=== PATIENT | male | born 1935 | race African-American/Black ===

== ENCOUNTER 2022-05-17 14:21 | Observation (INO) ==
[2022-05-17 16:26] LABS: Basophils % 0.3 % (0.0-0.8); Eosinophils # 0.1 10*3/uL (0.0-0.87); Eosinophils % 0.8 % (0.00-10.9); Hemoglobin 12.9 GM/DL (14.0-18.0); Immature Granulocytes % 0.3 %; Immature Granulocytes Absolute 0.02 #; Lymphocytes # 0.7 10*3/uL (1.4-4.0); Mean Corpuscular HGB Conc 34.9 GM/DL (32-36); Mean Corpuscular Volume 99.5 FL (87-102); Mean Platelet Volume 8.6 FL (9.6-12.0); Monocytes # 0.5 10*3/uL (0.11-0.8); Monocytes % 8.2 % (1.7-12.7); Neutrophils % 78.4 % (38.7-73.9); Platelet Count 189 T/CUMM (130-400); Red Blood Count 3.72 MC/CUMM (3.8-5.5)
[2022-05-17] MEDS ORDERED: ONDANSETRON 4 MG/2 ML VIAL IV STA (16:35)
[2022-05-17 16:42] LABS: Albumin 4.2 G/DL (3.4-5.0); Calcium 9.2 MG/DL (8.5-10.1); Osmolality,Calculated 254.4 MOS/KG (273-304)
[2022-05-17 17:23] LABS: Bilirubin,Urine Negative (Negative); Blood, Urine Trace mg/dL (Negative); Glucose,Urine (UA) Negative (Negative); Ketones,Urine Negative (Negative); Nitrite,Urine Negative (Negative); Protein,Urine 30 mg/dL (Negative); Urine Appearance Clear (Clear); Urine Color Yellow (Yellow); Urine Specific Gravity 1.015 (1.001-1.035); Urine Urobilinogen 0.2 eU/dL (<2.0)
[2022-05-17] MEDS ORDERED: SODIUM CHLORIDE 0.9% 1,000 ML IV STA (17:23)
[2022-05-17 17:25] LABS: Mucus,Urine Occasional /LPF (Occasional); RBC,Urine 6 /HPF (0-4); Squamous Epithelial Cell,Urine Occasional /HPF (0-10)
[2022-05-17] MEDS ORDERED: cefTRIAXone 1,000 MG in SODIUM CHLORIDE 0.9% 100 ML IV STA (18:07)
[2022-05-17] MEDS ORDERED: cefTRIAXone 250 MG VIAL IM STA (18:51)
[2022-05-17] MEDS ORDERED: FLUTICASONE 50 MCG NASAL SPRAY 16 GM BOTTLE BOTH NARES PRN (18:57)
[2022-05-17] MEDS: SODIUM CHLORIDE 0.9% 1,000 ML IV SCH (20:27)
[2022-05-17] MEDS: CALCIUM (CARBONATE)/VITAMIN D 600 MG-400 UNIT TABLET PO SCH (20:29)
[2022-05-17] MEDS: PANTOPRAZOLE 20 MG TABLET PO SCH (20:29)
[2022-05-17] MEDS: TAMSULOSIN 0.4 MG CAPSULE PO SCH (20:29)
[2022-05-17] MEDS: METOPROLOL TARTRATE 25 MG TABLET PO SCH (20:29)
[2022-05-17] MEDS ORDERED: LIDOCAINE 1% 20 ML VIAL IM ONE (20:30)
[2022-05-17] MEDS ORDERED: cefTRIAXone 1,000 MG VIAL IM ONE (20:30)
[2022-05-18 06:12] LABS: Basophils % 0.5 % (0.0-0.8); Eosinophils # 0.2 10*3/uL (0.0-0.87); Eosinophils % 4.2 % (0.00-10.9); Hematocrit 32.7 VOL% (42.0-52.0); Hemoglobin 11.5 GM/DL (14.0-18.0); Immature Granulocytes % 0.5 %; Immature Granulocytes Absolute 0.02 #; Lymphocytes # 0.8 10*3/uL (1.4-4.0); Lymphocytes % 19.2 % (21.2-54.2); Mean Corpuscular HGB Conc 35.2 GM/DL (32-36); Mean Corpuscular Volume 101.2 FL (87-102); Monocytes # 0.4 10*3/uL (0.11-0.8); Monocytes % 10.9 % (1.7-12.7); Neutrophils % 64.7 % (38.7-73.9); Platelet Count 172 T/CUMM (130-400); Red Blood Count 3.23 MC/CUMM (3.8-5.5); Red Cell Distribution Width 11.2 % (9.3-17.3)
[2022-05-18 06:35] LABS: Calcium 8.8 MG/DL (8.5-10.1); Potassium 4.2 MMOL/L (3.5-5.1)
[2022-05-18] MEDS ORDERED: ACETAMINOPHEN 500 MG TABLET PO PRN (08:41)
[2022-05-18] MEDS ORDERED: BUTALBITAL/ACETAMIN/CAFFEINE 50-325-40 MG TABLET PO ONE (08:42)
[2022-05-18] MEDS: LOSARTAN 50 MG TABLET PO SCH (09:27)
[2022-05-18] MEDS: FOLIC ACID 1 MG TABLET PO SCH (09:27)
[2022-05-18] MEDS: METOPROLOL TARTRATE 25 MG TABLET PO SCH ×2 (09:27→20:30)
[2022-05-18] MEDS: CALCIUM (CARBONATE)/VITAMIN D 600 MG-400 UNIT TABLET PO SCH ×2 (09:27→20:30)
[2022-05-18] MEDS: ASPIRIN EC 81 MG TABLET PO SCH (09:27)
[2022-05-18] MEDS: PANTOPRAZOLE 20 MG TABLET PO SCH ×2 (09:27→20:30)
[2022-05-18] MEDS: SODIUM CHLORIDE 0.9% 1,000 ML IV SCH ×2 (09:31→20:31)
[2022-05-18] MEDS: PHENAZOPYRIDINE 95 MG TABLET PO SCH ×2 (09:33→16:44)
[2022-05-18] MEDS ORDERED: FLUCONAZOLE 150 MG TABLET PO ONE (11:00)
[2022-05-18] MEDS: TAMSULOSIN 0.4 MG CAPSULE PO SCH (20:29)
[2022-05-19] MEDS: LOSARTAN 50 MG TABLET PO SCH (09:59)
[2022-05-19] MEDS: ASPIRIN EC 81 MG TABLET PO SCH (09:59)
[2022-05-19] MEDS: PHENAZOPYRIDINE 95 MG TABLET PO SCH (09:59)
[2022-05-19] MEDS: FOLIC ACID 1 MG TABLET PO SCH (09:59)
[2022-05-19] MEDS: CALCIUM (CARBONATE)/VITAMIN D 600 MG-400 UNIT TABLET PO SCH (09:59)
[2022-05-19] MEDS: METOPROLOL TARTRATE 25 MG TABLET PO SCH (09:59)
[2022-05-19] MEDS: PANTOPRAZOLE 20 MG TABLET PO SCH (10:00)
[2022-05-19 12:33] VITALS: BP 170/74
== END 2022-05-19 12:35 | disposition home or self-care (01) ==
LOC: N.ED 14:21 → N.EDINP 14:21 → N.5E 19:48
PROVIDERS: ADMIT Nurse Practitioner Family; ATTEND Family Medicine